=== PATIENT | male | born 1945 ===

== ENCOUNTER 2017-10-11 00:58 | Day surgery (SDC) | payer MEDICARE, OTHER ==
[~2017-10-11] VITALS: Ht 177.8 cm; Wt 64.9 kg
[2017-10-11] VITALS (7 sets, daily range): BP systolic 93–110; BP diastolic 59–84
[~2017-10-11 00:58] MED LIST: ASPI-1471 PO; ASPI-692 PO; CHOL10005 PO; DOCU-416 PO; LORA-802 PO; MAGN250T34 PO; MULT1TAB64 PO; OMEG1CAP93 PO; OXYC-865 PO; [UNRECOGNIZED DRUG - CODE] PO
[2017-10-11] MEDS ORDERED: NORMOSOL R SOLN(*) 1000 ML BAG 1,000 ML IV PRN (07:40)
[2017-10-11] MEDS ORDERED: MIDAZOLAM 2 MG/2 ML VIAL IVP PRN (07:40)
[2017-10-11] MEDS ORDERED: LIDOCAINE/SOD BICARB 8.4% SYR ID ONE (07:40)
[2017-10-11] MEDS ORDERED: LIDOCAINE MPF 1% 5 ML VIAL ONE (08:31)
[2017-10-11] MEDS ORDERED: PROPOFOL EMUL(*) 10MG/ML 20 ML 40 ML ONE (08:31)
--- NOTE | 2017-10-11 09:50 | Short(Outpt) Discharge Summary ---
Discharge Summary Reason for Hosp/Final Diag: (1) Family history of malignant neoplasm of gastrointestinal tract Hospital Course & Plan: Colonoscopy completed without any problems. Departure Discharge to: Home, Self Care Discharge Instructions Home Meds Active Scripts Sodium Chloride/Nahco3/Kcl/Peg (GAVILYTE-N SOLUTION) 4,000 Ml Soln.recon, 1 GAL PO ONCE, #1 GAL 0 Refills Prov:ROSALEE MONTANEZ MD 09/05/17 Reported Medications Loratadine (CLARITIN) 10 Mg Tablet, 10 MG PO DAILY Y for ALLERGY SYMPTOMS 10/04/17 Aspirin/Acetaminophen/Caffeine (EXCEDRIN MIGRAINE CAPLET) 1 Each Tablet, 1 EACH PO PRN 10/04/17 Magnesium Oxide (MAGNESIUM) 250 Mg Tablet, 250 MG PO BID 10/04/17 Cholecalciferol (Vitamin D3) (VITAMIN D3) 1,000 Unit Tablet, 1 TAB PO DAILY, TAB 03/07/17 [place]-3/Dha/Epa/Fish Oil (Fish Oil [place]-3 EC 1,200 mg) 360 Mg-1,200 Mg Capsule.dr, 1 TAB PO QDAY 03/03/17 Aspirin (ASPIR 81) 81 Mg Tablet.dr, 81 MG PO QDAY, TAB 03/03/17 Multivitamin (MULTI VITAMIN DAILY) 1 Each Tablet, 1 EACH PO QDAY, TAB 03/03/17 Diet: Regular Activity: As Tolerated Special Instructions: Your colonoscopy was completed without any problems and your prep was excellent (Good Job!!). The only abnormality was diverticulosis in your sigmoid colon. Diverticuli are benign little outpouchings that develop in about 40% of people. They are benign and do not lead to cancer. To prevent more from forming, eat a serving of fruits and vegetables with every meal, drink at least 6 glasses of water every day, and you could even consider taking a fiber (metamucil, citrucel, or others) supplement every day. ROSALEE MONTANEZ MD Oct 11, 2017 09:49
== END 2017-10-11 09:42 | disposition home or self-care (01) ==
LOC: OR 00:58
PROVIDERS: ATTEND Surgery
DX: Z12.11 Encounter for screening for malignant neoplasm of colon (principal); K57.30 Diverticulosis of large intestine without perforation or abscess without bleeding; Z80.0 Family history of malignant neoplasm of digestive organs
CPT/HCPCS: 00812; G0121; J2001; J2704

== ENCOUNTER 2019-02-28 14:35 | Emergency (ER) | payer MEDICARE, OTHER ==
--- NOTE | 2019-02-28 14:38 | ER Report ---
History and Physical Time Seen By MD: 14:38 HPI/ROS CHIEF COMPLAINT: chest pain HISTORY OF PRESENT ILLNESS: This is a 73-year-old male. Had about 5 minutes of chest pain last night, across central chest to both sides. Some radiation to the right arm. Went away. This morning had similar episode of pain, across chest, 10 minutes, went away. Now with same symptoms which have not gone away for the last hour or so. All episodes with some radiation to right arm. Has also had a headache for the last two days, band like distribution, sees to wax and wane. Associated dizziness like he might pass out. No vision changes. No numbness or tingling in arms or legs. Has had a little shortness of breath. No nausea or vomiting. No trouble with bowel or bladder function. No fevers, chills, cough, sore throat, runny nose, or other recent illness. Does have a history of intermittent headaches. No history of heart problems. Allergies: Coded Allergies: Penicillins (Verified Allergy, Severe, FACIAL SWELLING, 10/04/17) kiwi (Verified Allergy, Severe, JEANNE SWELLING, THROAT SWELLING, 10/04/17) Uncoded Allergies: HAYFEVER (Allergy, Intermediate, SNEEZING, 10/04/17) Home Meds Reported Medications Magnesium Oxide (MAGNESIUM) 250 Mg Tablet, 250 MG PO BID 10/04/17 Cholecalciferol (Vitamin D3) (VITAMIN D3) 1,000 Unit Tablet, 1 TAB PO DAILY, TAB 03/07/17 [place]-3/Dha/Epa/Fish Oil (Fish Oil [place]-3 EC 1,200 mg) 360 Mg-1,200 Mg Cap willie.dr, 1 TAB PO QDAY 03/03/17 Aspirin (ASPIR 81) 81 Mg Tablet.dr, 81 MG PO QDAY, TAB 03/03/17 Multivitamin (MULTI VITAMIN DAILY) 1 Each Tablet, 1 EACH PO QDAY, TAB 03/03/17 Discontinued Reported Medications Loratadine (CLARITIN) 10 Mg Tablet, 10 MG PO DAILY PRN for ALLERGY SYMPTOMS 10/04/17 Aspirin/Acetaminophen/Caffeine (EXCEDRIN MIGRAINE CAPLET) 1 Each Tablet, 1 EACH PO PRN 10/04/17 Reviewed Nurses Notes: Yes Hx Smoking: Yes (SMOKED 7 YEARS.) Smoking Status: Former Smoker Exposure to Second Hand Smoke?: No Hx Alcohol Use: Yes Constitutional Vital Sign - Last 24 Hours 02/28/19 02/28/19 02/28/19 02/28/19 14:35 14:38 14:38 14:57 Pulse ??? 87 Resp 18 B/P (MAP) 122/73 (89) 122/73 Pulse Ox 92 O2 Delivery Room Air O2 Flow Rate 2.0 02/28/19 02/28/19 02/28/19 02/28/19 15:00 15:05 15:11 15:20 Pulse ??? B/P (MAP) ???/??? (6525) 111/76 (88) 121/80 (94) 02/28/19 02/28/19 02/28/19 02/28/19 15:35 15:40 16:00 16:02 Pulse 72 Resp 10 B/P (MAP) 125/77 (93) 123/77 (92) 112/74 (87) Pulse Ox 98 02/28/19 02/28/19 02/28/19 02/28/19 16:04 16:05 16:07 16:10 Pulse 81 72 72 82 77 Resp 16 13 B/P (MAP) 124/91 (102) 128/89 (102) 112/74 (87) 124/91 (102) 128/89 (102) Pulse Ox 97 99 02/28/19 02/28/19 02/28/19 02/28/19 16:20 16:20 16:40 17:00 Pulse 70 Resp 12 B/P (MAP) 120/73 (89) 120/73 (89) 119/82 (94) 128/75 (92) Pulse Ox 98 02/28/19 02/28/19 02/28/19 02/28/19 17:10 17:20 17:40 17:41 Pulse 71 73 71 Resp 10 12 11 B/P (MAP) 121/77 (92) 119/72 (88) Pulse Ox 97 96 97 02/28/19 02/28/19 02/28/19 02/28/19 18:00 18:11 18:20 18:40 Pulse 85 Resp 22 B/P (MAP) 130/84 (99) 118/73 (88) 132/70 (90) Pulse Ox 94 02/28/19 02/28/19 02/28/19 02/28/19 18:41 19:00 19:05 19:20 Pulse 70 71 68 Resp 21 13 15 B/P (MAP) 126/70 (88) 119/68 (85) Pulse Ox 91 92 91 02/28/19 19:25 Pulse 68 Resp 13 Pulse Ox 91 Physical Exam General Appearance: Alert No acute distress. Non-toxic in appearance. Eyes: Pupils are equal, round. Reactive to light. No pallor, injection or icterus. Extraocular movements are intact. No nystagmus. ENT: Mucous membranes are moist. Normal oral mucosa. Posterior oropharynx is normal. TM and canals are normal bilaterally. Neck: Supple and non tender. Respiratory: Lungs are clear to auscultation. There are no retractions or accessory muscle use. Cardiovascular: Regular rate and rhythm. No murmurs, gallops or rubs. Normal capillary refill. No edema. No carotid bruits. Gastrointestinal: Abdomen is soft and non tender. Nondistended. Normal active bowel sounds. No CVA tenderness. Neurological: Alert and oriented x3. No focal neurologic deficits in the extremities with normal strength and sensation. Cranial nerves with eye exam as noted above. Midline tongue, symmetric palate. No facial weakness or numbness. Skin: Warm and dry. No rashes. Musculoskeletal: Extremities are nontender. No tenderness in palpation of the cervical, thoracic and lumbar spine. No reproducible chest pain with palpation. DIFFERENTIAL DIAGNOSIS: After history and physical exam, differential diagnosis was considered for chest pain including but not limited to myocardial ischemia, pericarditis pulmonary embolus, chest wall pain, pleural inflammation and pulmonary infectious causes. But also with headache and feeling of near-syncope at times with possibilities including but not limited to subarachnoid hemorrhage, migraine headache, tension headache and arrhythmia, dehydration, and blood loss. Medical Decision Making Data Points Result Diagram: 02/28/19 1446 02/28/19 1446 Laboratory Hematology Test 02/28/19 14:46 02/28/19 18:49 Red Blood Count 4.79 M/uL (4.00-5.60) Mean Corpuscular Volume 94.5 fL (80.0-96.0) Mean Corpuscular Hemoglobin 32.8 pg (26.0-33.0) Mean Corpuscular Hemoglobin Concent 34.7 g/dL (32.0-36.0) Red Cell Distribution Width 13.4 % (11.5-14.5) Mean Platelet Volume 8.8 fL (7.2-11.1) Neutrophils (%) (Auto) 64.0 % (39.4-72.5) Lymphocytes (%) (Auto) 21.8 % (17.6-49.6) Monocytes (%) (Auto) 11.5 % (4.1-12.4) Eosinophils (%) (Auto) 2.1 % (0.4-6.7) Basophils (%) (Auto) 0.6 % (0.3-1.4) Nucleated RBC Relative Count (auto) 0.1 /100WBC Neutrophils # (Auto) 4.7 K/uL (2.0-7.4) Lymphocytes # (Auto) 1.6 K/uL (1.3-3.6) Monocytes # (Auto) 0.8 K/uL (0.3-1.0) Eosinophils # (Auto) 0.1 K/uL (0.0-0.5) Basophils # (Auto) 0.0 K/uL (0.0-0.1) Nucleated RBC Absolute Count (auto) 0.01 K/uL Prothrombin Time 12.4 seconds (12.0-14.4) Prothromb Time International Ratio 0.92 Activated Partial Thromboplast Time 26 seconds (23-35) D-Dimer Quantitative (PE/DVT) 0.49 ug/ml (0-0.50) Sodium Level 140 mmol/L (137-145) Potassium Level 3.8 mmol/L (3.5-5.0) Chloride Level 108 mmol/L (98-107) Carbon Dioxide Level 23 mmol/L (22-30) Blood Urea Nitrogen 23 mg/dl (9-21) Creatinine 0.90 mg/dl (0.66-1.25) Glomerular Filtration Rate Calc > 60.0 Random Glucose 78 mg/dl (75-110) Calcium Level 9.5 mg/dl (8.4-10.2) Total Bilirubin 0.5 mg/dl (0.2-1.3) Aspartate Amino Transf (AST/SGOT) 36 U/L (0-35) Alanine Aminotransferase (ALT/SGPT) 38 U/L (0-56) Alkaline Phosphatase 65 U/L (0-126) B-Type Natriuretic Peptide 21 pg/ml (0-100) Total Protein 7.1 g/dl (6.3-8.2) Albumin 4.3 g/dl (3.5-5.0) Troponin I < 0.012 ng/ml Chemistry Test 02/28/19 14:46 02/28/19 18:49 White Blood Count 7.3 k/uL (4.5-11.0) Red Blood Count 4.79 M/uL (4.00-5.60) Hemoglobin 15.7 g/dL (14.0-18.0) Hematocrit 45.3 % (42.0-52.0) Mean Corpuscular Volume 94.5 fL (80.0-96.0) Mean Corpuscular Hemoglobin 32.8 pg (26.0-33.0) Mean Corpuscular Hemoglobin Concent 34.7 g/dL (32.0-36.0) Red Cell Distribution Width 13.4 % (11.5-14.5) Platelet Count 189 K/uL (150-450) Mean Platelet Volume 8.8 fL (7.2-11.1) Neutrophils (%) (Auto) 64.0 % (39.4-72.5) Lymphocytes (%) (Auto) 21.8 % (17.6-49.6) Monocytes (%) (Auto) 11.5 % (4.1-12.4) Eosinophils (%) (Auto) 2.1 % (0.4-6.7) Basophils (%) (Auto) 0.6 % (0.3-1.4) Nucleated RBC Relative Count (auto) 0.1 /100WBC Neutrophils # (Auto) 4.7 K/uL (2.0-7.4) Lymphocytes # (Auto) 1.6 K/uL (1.3-3.6) Monocytes # (Auto) 0.8 K/uL (0.3-1.0) Eosinophils # (Auto) 0.1 K/uL (0.0-0.5) Basophils # (Auto) 0.0 K/uL (0.0-0.1) Nucleated RBC Absolute Count (auto) 0.01 K/uL Prothrombin Time 12.4 seconds (12.0-14.4) Prothromb Time International Ratio 0.92 Activated Partial Thromboplast Time 26 seconds (23-35) D-Dimer Quantitative (PE/DVT) 0.49 ug/ml (0-0.50) Glomerular Filtration Rate Calc > 60.0 Calcium Level 9.5 mg/dl (8.4-10.2) Total Bilirubin 0.5 mg/dl (0.2-1.3) Aspartate Amino Transf (AST/SGOT) 36 U/L (0-35) Alanine Aminotransferase (ALT/SGPT) 38 U/L (0-56) Alkaline Phosphatase 65 U/L (0-126) B-Type Natriuretic Peptide 21 pg/ml (0-100) Total Protein 7.1 g/dl (6.3-8.2) Albumin 4.3 g/dl (3.5-5.0) Troponin I < 0.012 ng/ml Coagulation Test 02/28/19 14:46 Prothrombin Time 12.4 seconds Prothromb Time International Ratio 0.92 Activated Partial Thromboplast Time 26 seconds D-Dimer Quantitative (PE/DVT) 0.49 ug/ml EKG/Imaging EKG Interpretation 12 lead EKG: At 14:41 hours Rhythm: normal sinus rhythm, rate 83 [place]: Left axis deviation QRS: Left anterior fascicular block ST segments: A little bit of a strain pattern in V3 through V5 but no ST elevation or depression meeting criteria for ischemia .12 lead EKG: At 18:45 hours Unchanged Imaging EXAMINATION: CT head without IV contrast HISTORY: Dizziness, chest pain, headache. COMPARISON: None. TECHNIQUE: Contiguous axial images were obtained from the skull base to the vertex without intravenous contrast. Sagittal and coronal reformatted images are also submitted. One of the following dose optimization techniques was utilized in the performance of this exam: Automated exposure control; adjustment of the mA and/or kV according to the patient's size; or use of an iterative reconstruction technique. Specific details can be referenced in the facility's radiology CT exam operational policy. FINDINGS: Brain volume: Mild generalized atrophy with associated concordant prominence of the ventricular system. Ventricles: Normal. Acute ischemic changes: None. Hemorrhage: No acute intracranial hemorrhage. Masses/edema: None. Wallace-white: Negative. White matter: Normal. Vessels: Calcified plaque of both carotid siphons. Extra-axial: Negative. Calvarium/scalp: Negative. Skull base/visualized face: Negative. Visualized sinuses/orbits: Previous sinus surgery with mild patchy mucosal thic kening in the paranasal sinuses. Mild nasal septal deviation to the right. IMPRESSION: No acute hemorrhage or intracranial mass lesion. No CT evidence of acute infarct. Report Dictated By: Bridgett Chicas MD at 02/28/2019 3:25 PM Exam type: CHEST SINGLE AP History: Chest pain, dizziness and headache Comparison: None. Findings: The lungs are free of acute effusions, infiltrates or edema. No evidence of a pneumothorax or pneumomediastinum. The cardiac silhouette is normal in size. T he trachea is in midline. IMPRESSION: 1. No acute cardiopulmonary process is seen Report Dictated By: Zuleyka Saldivar MD at 02/28/2019 3:22 PM ED Course/Re-evaluation Clinical Indication for ER IV: Hydration, IV Access ED Course Initial evaluation done. Head CT negative and then given Aspirin 324mg chewed. Labs unremarkable, negative troponin and negative EKG. Headache and chest pain gone. Kept for a 4 hour Troponin and EKG. No recurrent pain. Repeat lab and EKG negative. Discussed findings and follow-up and answered questions. See instructions below. Decision to Disposition Date: Feb 28, 2019 Decision to Disposition Time: 19:31 Depart Departure Latest Vital Signs Vital Signs Date Time Temp Pulse Resp B/P (MAP) Pulse Ox O2 Delivery O2 Flow Rate FiO2 02/28/19 19:25 68 13 91 02/28/19 19:20 119/68 (85) 02/28/19 14:57 2.0 02/28/19 14:38 Room Air Impression: Primary Impression: Chest pain Condition: Improved Disposition: HOME OR SELF-CARE Referrals: ROSALEE MEDRANO MD (PCP) Patient Instructions: Acute Headache (ED), Chest Pain (ED) Additional Instructions: Your testing today for chest pain was negative. This is what we call Undifferentiated chest pain, meaning we do not know what was causing it. We know that you have not had a heart attack. You do not have infections in the lungs, You do not have masses or fluid in the lungs, you do not have blood clots in the lungs. This still could be Angina and we recommend follow-up for stress test. Call Dr. Medrano's office tomorrow to talk with them about getting set up for a stress test. Relative rest until you follow-up. Return for worsening symptoms of chest pain or shortness of breath. Problem Qualifiers Primary Impression: Chest pain Chest pain type: unspecified Qualified Codes: R07.9 - Chest pain, unspecified DIANE FERRIS MD Feb 28, 2019 14:39
[2019-02-28] MEDS ORDERED: NS(*) 0.9% 1000 ML BAG 1,000 ML IV ONE (14:53)
[2019-02-28] MEDS ORDERED: ASPIRIN 81 MG CHEW PO ONE (14:55)
[2019-02-28 15:12] LABS: INR 0.92
--- NOTE | 2019-02-28 15:13 | EKG ---
FACILITY: [facility] - [place] PATIENT NAME: SEBLE MILTON : [id number] MR: [id number] V: [id number] EXAM DATE: ORDERING PHYSICIAN: DIANE FERRIS TECHNOLOGIST: Test Reason : chest pain Blood Pressure : / mmHG Vent. Rate : 083 BPM Atrial Rate : 083 BPM P-R Int : 168 ms QRS Dur : 094 ms QT Int : 384 ms P-R-T Axes : 059 -67 071 degrees QTc Int : 451 ms Normal sinus rhythm Left anterior fascicular block Anterior infarct (cited on or before 28-FEB-2019) Abnormal ECG When compared with ECG of 09-MAR-2017 06:43, No significant change was found Confirmed by Shorty Canales ([id number]) on 03/01/2019 6:10:47 AM Referred By: Confirmed By:Shorty Thompson
[2019-02-28 15:15] LABS: PLATELET COUNT, AUTOMATED 189 K/uL (150-450)
--- NOTE | 2019-02-28 15:28 | RADIOLOGY IMAGING REPORT ---
FACILITY: [facility] - [place] PATIENT NAME: Chaitanya Castaneda : 1945 MR: [id number] V: [id number] EXAM DATE: ORDERING PHYSICIAN: DIANE FERRIS TECHNOLOGIST: Location: [facility] - [place] Patient: Chaitanya Castaneda : 1945 Visit/Account:[id number] Date of Sevice: 02/28/2019 Exam type: CHEST SINGLE AP History: Chest pain, dizziness and headache Comparison: None. Findings: The lungs are free of acute effusions, infiltrates or edema. No evidence of a pneumothorax or pneumo mediastinum. The cardiac silhouette is normal in size. The trachea is in midline. IMPRESSION: 1. No acute cardiopulmonary process is seen Report Dictated By: Zuleyka Saldivar MD at 02/28/2019 3:22 PM Report E-Signed By: Zuleyka Saldivar MD at 02/28/2019 3:22 PM WSN:[email or web address]
--- NOTE | 2019-02-28 15:31 | RADIOLOGY IMAGING REPORT ---
FACILITY: [facility] PATIENT NAME: Chaitanya Castaneda : 1945 MR: [id number] V: [id number] EXAM DATE: ORDERING PHYSICIAN: DIANE FERRIS TECHNOLOGIST: Location: [facility] - [place] Patient: Chaitanya Castaneda : 1945 Visit/Account:[id number] Date of Sevice: 02/28/2019 EXAMINATION: CT head without IV contrast HISTORY: Dizziness, chest pain, headache. COMPARISON: None. TECHNIQUE: Contiguous axial images were obtained from the skull base to the vertex without intraven ous contrast. Sagittal and coronal reformatted images are also submitted. One of the following dose optimization techniques was utilized in the performance of this exam: Autom ated exposure control; adjustment of the mA and/or kV according to the patient's size; or use of an i terative reconstruction technique. Specific details can be referenced in the facility's radiology C T exam operational policy. FINDINGS: Brain volume: Mild generalized atrophy with associated concordant prominence of the ventricular syst em. Ventricles: Normal. Acute ischemic changes: None. Hemorrhage: No acute intracranial hemorrhage. Masses/edema: None. Wallace-white: Negative. White matter: Normal. Vessels: Calcified plaque of both carotid siphons. Extra-axial: Negative. Calvarium/scalp: Negative. Skull base/visualized face: Negative. Visualized sinuses/orbits: Previous sinus surgery with mild patchy mucosal thickening in the paranas al sinuses. Mild nasal septal deviation to the right. IMPRESSION: No acute hemorrhage or intracranial mass lesion. No CT evidence of acute infarct. Report Dictated By: Bridgett Chicas MD at 02/28/2019 3:25 PM Report E-Signed By: Bridgett Chicas MD at 02/28/2019 3:27 PM WSN:[facility]
[2019-02-28 19:20] VITALS: BP 119/68
--- NOTE | 2019-02-28 20:44 | EKG ---
FACILITY: [facility] PATIENT NAME: SEBLE MILTON : [id number] MR: [id number] V: [id number] EXAM DATE: ORDERING PHYSICIAN: DIANE FERRIS TECHNOLOGIST: TRINO Manriquez Reason : Blood Pressure : / mmHG Vent. Rate : 072 BPM Atrial Rate : 072 BPM P-R Int : 174 ms QRS Dur : 098 ms QT Int : 422 ms P-R-T Axes : 066 -68 070 degrees QTc Int : 462 ms Normal sinus rhythm Left anterior fascicular block Abnormal ECG When compared with ECG of 28-FEB-2019 14:41, No significant change was found Confirmed by Shorty Canales ([id number] on 03/01/2019 6:11:20 AM Referred By: Confirmed By:Shorty Thompson
== END 2019-02-28 19:42 | disposition home or self-care (01) ==
LOC: ER 14:43
DX: R07.9 Chest pain, unspecified (principal); I44.4 Left anterior fascicular block; R42 Dizziness and giddiness; R06.02 Shortness of breath
CPT/HCPCS: 70450; 71045; 83880; 84484; 85025; 85379; 85610; 85730; 93005; 96360; 99284; A9270; J7030; 82040; 82247; 82310; 82374; 82435; 82565; 82947; 84075; 84132; 84155; 84295; 84450; 84460; 84520

== ENCOUNTER 2019-04-19 00:41 | Day surgery (SDC) | payer MEDICARE, OTHER ==
[~2019-04-19] VITALS: Ht 177.8 cm; Wt 65.8 kg
[~2019-04-19 00:41] MED LIST changes: +PRED5DRO34 OP
[2019-04-19 09:05] VITALS: BP 110/75
[2019-04-19] MEDS ORDERED: PROPOFOL EMUL(*) 10MG/ML 20 ML 40 ML ONE (09:06)
[2019-04-19] MEDS ORDERED: LIDOCAINE MPF 1% 5 ML VIAL ONE (09:06)
[2019-04-19] MEDS ORDERED: NORMOSOL R SOLN(*) 1000 ML BAG 1,000 ML IV PRN (09:45)
[2019-04-19] MEDS ORDERED: LIDOCAINE/SOD BICARB 8.4% SYR ID ONE (09:45)
[2019-04-19 09:56] VITALS: BP 70/40
[2019-04-19 09:59] VITALS: BP 80/53
[2019-04-19] MEDS ORDERED: PANT40TA65 PO (10:08)
[2019-04-19 10:09] VITALS: BP 96/66
--- NOTE | 2019-04-19 10:09 | Short(Outpt) Discharge Summary ---
Discharge Summary Reason for Hosp/Final Diag: (1) Dysphagia Hospital Course & Plan: pt presented for egd. he tolerated the procedure well and will be discharged home when criteria met. Departure Discharge to: Home Discharge Instructions Home Meds Active Scripts Pantoprazole Sodium (PANTOPRAZOLE SODIUM) 40 Mg Tablet.dr, 1 TAB PO DAILY, #30 CAP 2 Refills Prov:ASHLEE ROSAS 04/19/19 Reported Medications Prednisolone Acetate (PREDNISOLONE ACETATE) 5 Ml Drops.susp, 5 ML OP TID 04/17/19 Magnesium Oxide (MAGNESIUM) 250 Mg Tablet, 250 MG PO BID 10/04/17 Cholecalciferol (Vitamin D3) (VITAMIN D3) 1,000 Unit Tablet, 1 TAB PO DAILY, TAB 03/07/17 [place]-3/Dha/Epa/Fish Oil (Fish Oil [place]-3 EC 1,200 mg) 360 Mg-1,200 Mg Capsule.dr, 1 TAB PO QDAY 03/03/17 Aspirin (ASPIR 81) 81 Mg Tablet.dr, 81 MG PO QDAY, TAB 03/03/17 Multivitamin (MULTI VITAMIN DAILY) 1 Each Tablet, 1 EACH PO QDAY, TAB 03/03/17 Diet: Regular Activity: As Tolerated Special Instructions: we will call you in 10 days with results. ASHLEE ROSAS Apr 19, 2019 10:09
[2019-04-19 10:32] VITALS: BP 119/75
[2019-04-19 10:35] VITALS: BP 116/79
== END 2019-04-19 10:45 | disposition home or self-care (01) ==
LOC: OR 00:41
PROVIDERS: ATTEND Surgery
DX: K22.2 Esophageal obstruction (principal); K29.70 Gastritis, unspecified, without bleeding
CPT/HCPCS: 43239; 43249; 88305; 88313; 88342; J2001; J2704